=== PATIENT | female | born 1950 | race Caucasian/White ===

== ENCOUNTER 2017-06-04 19:47 | Outpatient (CLI) | payer SELFPAY | END 2017-06-04 19:48 | disposition EMS.NT | LOC: EMS 19:47 | PROVIDERS: ATTEND Surgery | DX: R52 Pain, unspecified (principal); V49.40XA Driver injured in collision with unspecified motor vehicles in traffic accident, initial encounter; Y92.410 Unspecified street and highway as the place of occurrence of the external cause ==

== ENCOUNTER 2017-07-24 10:19 | Outpatient (CLI) | payer BC ==
--- NOTE | 2017-07-24 12:09 | XRAY Report ---
TWO-VIEW CHEST: 07/24/2017 CLINICAL INDICATION: Pleuritic chest pain. FINDINGS: Frontal and lateral views of the chest demonstrate a normal cardiac silhouette. There are patchy parenchymal opacities in the right lung, with mild prominence of the right hilum. This may r epresent pneumonia with associated hilar adenopathy in the appropriate clinical scenario. If the pat ient's presentation is not compatible with infection, then chest CT would be recommended to exclude a n underlying pulmonary malignancy. If the patient's presentation is compatible with infection, follo wup chest x-ray following appropriate antibiotic therapy would be recommended. IMPRESSION: PATCHY RIGHT PULMONARY OPACITIES, WITH POSSIBLE RIGHT HILAR ADENOPATHY. PLEASE SEE AYANA E DISCUSSION. JOB #: [id number] EXT JOB #:[id number]
== END 2017-07-24 10:20 | disposition home or self-care (01) ==
LOC: DI 10:19
PROVIDERS: ATTEND Family Medicine
DX: R91.8 Other nonspecific abnormal finding of lung field (principal)
CPT/HCPCS: 71020

== ENCOUNTER 2017-08-08 11:32 | Outpatient (CLI) | payer BC ==
--- NOTE | 2017-08-08 15:08 | XRAY Report ---
EXAM: CHEST RADIOGRAPHY EXAM DATE: 08/08/2017 11:45 AM. CLINICAL HISTORY: PLEURITIC CHEST PAIN. COMPARISON: 07/24/2017. TECHNIQUE: 2 views. FINDINGS: Lungs/Pleura: Interval decrease in patchy opacity within the right midlung. Opacity projecting over t he right base probably represents nipple shadow. No evidence of acute consolidation. No effusion. No pneumothorax. Mediastinum: Heart and mediastinal contours are unremarkable. Other: 1. Interval IMPRESSION: 1. Interval decrease in patchy opacity within the right midlung. 2. No new areas of airspace disease are seen. [facility] Referring Provider Line: [phone] SITE ID: [id number]
== END 2017-08-08 11:33 | disposition home or self-care (01) ==
LOC: DI.S 11:32
PROVIDERS: ATTEND Family Medicine
DX: R07.81 Pleurodynia (principal)
CPT/HCPCS: 71020

== ENCOUNTER 2017-08-30 10:39 | Outpatient (CLI) | payer MEDICARE, OTHER ==
--- NOTE | 2017-08-30 13:19 | XRAY Report ---
DATE OF SERVICE: 08/30/2017 TWO VIEW CHEST: 08/30/2017 COMPARISON: Two view chest of 08/08/2017. INDICATION: Pleuritic chest pain. TECHNIQUE: Two views of the chest. FINDINGS: Again seen is right pulmonary basal opacity. This is unchanged and of uncertain etiology. It is not well seen on the lateral view. No pneumothorax or pleural effusion. Mediastinum otherwise unremarkable. IMPRESSION: RIGHT PULMONARY BASAL OPACITY IS OF UNCERTAIN ETIOLOGY AND SIGNIFICANCE. OTHER IMAGING SUCH CT IS AVAILABLE INDICATED. TD: 08/30/2017 14:17 DAVIN
== END 2017-08-30 10:40 | disposition home or self-care (01) ==
LOC: DI.S 10:39
PROVIDERS: ATTEND Family Medicine
DX: R07.81 Pleurodynia (principal)
CPT/HCPCS: 71046

== ENCOUNTER 2017-09-11 16:48 | Outpatient (CLI) | payer MEDICARE, OTHER, BC ==
--- NOTE | 2017-09-12 09:34 | CT Report ---
DATE OF SERVICE: 09/11/2017 CT CHEST WITHOUT CONTRAST: 09/11/2017 CLINICAL INDICATION: Pleuritic chest pain, cough TECHNIQUE: Axial CT images of the chest were obtained without intravenous contrast. No previous CT is available for comparison. Comparison is made to chest x-ray of 08/30/2017, 08/08/2017, 07/24/2017. In accordance with CT protocol optimization, one or more of the following dose reduction techniques were utilized for this exam: Automated exposure control, adjustment of mA and/or KV based on patient size, or use of iterative reconstructive technique. Allowing for the lack intravenous contrast, the heart and great vessels appear unremarkable. No hilar or mediastinal lymphadenopathy is appreciated. There are patchy infiltrates in the right upper lobe, right middle lobe, and lingula. No effusion or pneumothorax is present. Osseous structures demonstrate degenerative changes. Limited evaluation of upper abdominal structures demonstrates normal adrenal glands. IMPRESSION: Patchy bilateral infiltrates. TD: 09/12/2017 10:33
== END 2017-09-11 16:49 | disposition home or self-care (01) ==
LOC: DI 16:48
PROVIDERS: ATTEND Family Medicine
DX: R91.8 Other nonspecific abnormal finding of lung field (principal)
CPT/HCPCS: 71250

== ENCOUNTER 2017-10-10 13:20 | Outpatient (CLI) | payer MEDICARE, OTHER, BC ==
--- NOTE | 2017-10-10 17:13 | CT Report ---
CT CHEST WITHOUT CONTRAST: 10/10/2017 CLINICAL INDICATION: Pleuritic chest pain, followup infiltrates. COMPARISON: 09/11/2017 TECHNIQUE: Axial CT images of the chest were obtained without intravenous contrast. In accordance with CT protocol optimization, one or more of the following dose reduction techniques were utilized for this exam: Automated exposure control, adjustment of mA and/or KV based on patient size, or use of iterative reconstructive technique. FINDINGS: The heart and great vessels demonstrate mild atherosclerotic calcification. No hilar or mediastinal lymphadenopathy is present. Patchy infiltrates in the lateral right upper lobe have increased. No effusion or pneumothorax is present. Osseous structures demonstrate degenerative changes. Limited evaluation of upper abdominal structures demonstrates normal adrenal glands. IMPRESSION: INCREASING PATCHY INFILTRATES IN THE LATERAL RIGHT UPPER LOBE. TD: 10/10/2017 17:12
== END 2017-10-10 13:21 | disposition home or self-care (01) ==
LOC: DI 13:20
PROVIDERS: ATTEND Family Medicine
DX: R91.8 Other nonspecific abnormal finding of lung field (principal)
CPT/HCPCS: 71250

== ENCOUNTER 2018-02-21 12:34 | Outpatient (CLI) | payer MEDICARE, OTHER, BC ==
--- NOTE | 2018-02-21 13:07 | XRAY Report ---
Procedure Date: 02/21/2018 Accession Number: [id number] / [id number] Procedure: XR - Chest 2 View X-Ray CPT Code: 74761 FULL RESULT: EXAM: Chest 2 View X-Ray DATE: 02/21/2018 12:54 PM CLINICAL HISTORY: PNEUMONIA COMPARISON: CT 10/10/2017 TECHNIQUE: 2 views. FINDINGS: Lungs/Pleura: Right basilar infiltrate, more prominent than previous. No effusion or pneumothorax. Mediastinum: Heart and mediastinal contours are unremarkable. Other: None. IMPRESSION: Right basilar infiltrate, more prominent than previous. [facility]
== END 2018-02-21 12:35 | disposition home or self-care (01) ==
LOC: DI 12:34
PROVIDERS: ATTEND Internal Medicine
DX: J18.9 Pneumonia, unspecified organism (principal)
CPT/HCPCS: 71046

== ENCOUNTER 2018-03-11 13:56 | Emergency (ER) | payer MEDICARE, OTHER ==
[2018-03-11 14:06] VITALS: BP 110/68
--- NOTE | 2018-03-11 14:32 | XRAY Report ---
Procedure Date: 03/11/2018 Accession Number: [id number] / [id number] Procedure: XR - Shoulder 3 View RT CPT Code: FULL RESULT: EXAM: RIGHT SHOULDER RADIOGRAPHY EXAM DATE: 03/11/2018 02:17 PM. CLINICAL HISTORY: Shoulder pain after falling off horse. COMPARISON: None. TECHNIQUE: 3 views. FINDINGS: Bones: Acute comminuted minimally impacted fracture involving the right humeral head and neck, without angulation. Joints: The glenohumeral and acromioclavicular joints are normal. Soft tissues: The visualized hemithorax is unremarkable. Edema at the fracture site. IMPRESSION: Right humeral head and neck fracture. [facility]
--- NOTE | 2018-03-11 15:21 | ED Physician Documentation ---
PD HPI UPPER EXT INJURY - Stated complaint Stated Complaint: RT SHOULDER/ARM INJURY - Chief complaint Chief Complaint: Ext Problem - History obtained from History obtained from: Patient - History of Present Illness Location: Right, Shoulder Type of injury: Fall (she says was riding horse and the saddle was not cinched well, so it slid to the side, causing her to fall off, landing onto right shoulder.) Where injury occurred: [place] [facility] Timing - onset: Today Timing - details: Abrupt onset, Still present Worsened by: Moving, Palpating Associated symptoms: Swelling (shoulder). No: Weakness, Numbness Similar symptoms before: Has not had sx before Recently seen: Not recently seen Review of Systems Constitutional: denies: Fever, Chills Nose: denies: Rhinorrhea / runny nose, Congestion Throat: denies: Sore throat Respiratory: denies: Cough GI: denies: Vomiting, Diarrhea Skin: denies: Abrasion (s), Laceration (s) Musculoskeletal: reports: Joint pain (right shoulder only). denies: Neck pain, Back pain Neurologic: denies: Focal weakness, Numbness PD PAST MEDICAL HISTORY - Past Medical History Cardiovascular: None Respiratory: None Neuro: None - Present Medications Home Medications: Ambulatory Orders Medication Instructions Recorded Confirmed HYDROcod/ACETAM 5/325 [Foster 5/325] 1 tab PO Q6H PRN #25 tablet 03/11/18 Methocarbamol [Robaxin] 500 mg PO Q6H PRN #25 tablet 03/11/18 Naproxen 375 mg PO BID #20 tablet 03/11/18 PD ED PE NORMAL - Vitals Vital signs reviewed: Yes - General General: Alert and oriented X 3, Well developed/nourished, Other (appears in pain with any ROM of the shoulder. holding right arm guardedly to side. ) - HEENT HEENT: Atraumatic, Dentition benign - Neck Neck: Supple, no meningeal sign, No adenopathy - Cardiac Cardiac: RRR, No murmur - Respiratory Respiratory: Clear bilaterally - Abdomen Abdomen: Soft, Non tender - Back Back: No CVA TTP, No spinal TTP - Derm Derm: Normal color, Warm and dry - Extremities Extremities: Other (wrist and elbow not tender. Right shoulder tender at humeral neck area with some swelling. No gross deformity. Pain with any slight ROM. ) - Neuro Neuro: No motor deficit, No sensory deficit Results - Vitals Vitals: Oxygen O2 Source Room air PD MEDICAL DECISION MAKING - ED course Complexity details: reviewed results, considered differential, d/w patient - Sepsis Event Vital Signs: Oxygen O2 Source Room air Departure - Departure Disposition: 01 Home, Self Care Clinical Impression: Fall from horse Qualifiers: Encounter type: initial encounter Qualified Code(s): V80.010A - Animal-rider injured by fall from or being thrown from horse in noncollision accident, initial encounter Fx humeral neck Qualifiers: Encounter type: initial encounter Fracture type: closed Laterality: right Qualified Code(s): S42.211A - Unspecified displaced fracture of surgical neck of right humerus, initial encounter for closed fracture Condition: Stable Record reviewed to determine appropriate education?: Yes Instructions: ED Fx Shoulder Follow-Up: Markie Mistry MD [Provider Admit Priv/Credential] - Prescriptions: HYDROcod/ACETAM 5/325 [Foster 5/325] 1 tab PO Q6H PRN #25 tablet PRN Reason: Pain Methocarbamol [Robaxin] 500 mg PO Q6H PRN #25 tablet PRN Reason: Spasms Naproxen 375 mg PO BID #20 tablet Comments: Sling for the arm for likely 4 weeks. Follow-up with orthopedics in about a week, call today or tomorrow for an appointment. Ice or cool towels to the area periodically today for swelling. Naproxen twice daily for the next 7-10 days for pain and inflammation. Robaxin if needed for muscle spasms around the shoulder. Add Tylenol or hydrocodone if needed for pain. Discharge Date/Time: 03/11/18 17:21
[2018-03-11] MEDS ORDERED: METHOCARBAMOL 500 MG TABLET PO STA (15:30)
[2018-03-11] MEDS ORDERED: KETOROLAC 30 MG/ML VIAL IM STA (15:30)
[2018-03-11] MEDS ORDERED: oxyCOD/ACETAMIN 5 MG/325 MG TABLET PO STA (15:30)
== END 2018-03-11 17:21 | disposition home or self-care (01) ==
LOC: ED 13:56
DX: S42.211A Unspecified displaced fracture of surgical neck of right humerus, initial encounter for closed fracture (principal); V80.010A Animal-rider injured by fall from or being thrown from horse in noncollision accident, initial encounter; Y93.52 Activity, horseback riding
CPT/HCPCS: 73030; 96372; 99283; A9270

== ENCOUNTER 2018-03-31 09:09 | Outpatient (CLI) | payer MEDICARE, OTHER ==
--- NOTE | 2018-03-31 14:40 | XRAY Report ---
Procedure Date: 03/31/2018 Accession Number: [id number] / [id number] Procedure: XRS - Chest 2 View X-Ray CPT Code: 71153 FULL RESULT: EXAM: Chest 2 View X-Ray DATE: 03/31/2018 9:19 AM CLINICAL HISTORY: PNEUMONIA COMPARISON: 02/21/2018. TECHNIQUE: 2 views. FINDINGS: Previously seen predominant right basilar infiltrates have decreased in conspicuity. No new opacities are identified. There is no pleural effusion or pneumothorax. A normal sized cardiomediastinal silhouette is stable. IMPRESSION: Interval decrease in previously seen pulmonary infiltrates. Pulmonary infiltrates often remain radiographically evident after clinical symptoms have resolved. [place] typical radiographic follow-up is 4 weeks following resolution of clinical symptoms. [facility]
== END 2018-03-31 09:10 | disposition home or self-care (01) ==
LOC: DI.S 09:09
PROVIDERS: ATTEND Internal Medicine
DX: J18.9 Pneumonia, unspecified organism (principal)
CPT/HCPCS: 71046

== ENCOUNTER 2018-04-26 15:36 | Outpatient (CLI) | payer MEDICARE, OTHER ==
--- NOTE | 2018-04-26 16:17 | XRAY Report ---
Reason: PNEUMONIA FOLLOW UP Procedure Date: 04/26/2018 Accession Number: [id number] / [id number] Procedure: XR - Chest 2 View X-Ray CPT Code: 46364 FULL RESULT: EXAM: CHEST RADIOGRAPHY EXAM DATE: 04/26/2018 03:50 PM. CLINICAL HISTORY: PNEUMONIA FOLLOW UP. Chronic cough. COMPARISON: Chest 02/21/2018. TECHNIQUE: 2 views. FINDINGS: Lungs/Pleura: A focal group of small nodular opacities in the right upper lobe have increased compared to prior exam. The right anterior base consolidative opacification has decreased to a small amount. New left midlung pulmonary nodule measuring 1.2 cm. No pleural effusion or pneumothorax. Mediastinum: Heart and mediastinal contours are unremarkable. IMPRESSION: A focal group of small nodular opacities in the right upper lobe have increased compared to prior exam. The right anterior base consolidative opacification has decreased to a small amount. New left midlung pulmonary nodule measuring 1.2 cm. [facility]
== END 2018-04-26 15:37 | disposition home or self-care (01) ==
LOC: DI 15:36
PROVIDERS: ATTEND Internal Medicine
DX: R91.8 Other nonspecific abnormal finding of lung field (principal); Z87.891 Personal history of nicotine dependence
CPT/HCPCS: 71046

== ENCOUNTER 2018-06-16 09:22 | Outpatient (CLI) | payer MEDICARE, OTHER ==
--- NOTE | 2018-06-16 12:57 | DEXA Report ---
Reason: ASYMPTOMATIC MENOPAUSAL Procedure Date: 06/16/2018 Accession Number: [id number] / [id number] Procedure: DEX - Dexa Spine and/or Hip CPT Code: FULL RESULT: EXAM: Dexa Spine and/or Hip DATE: 06/16/2018 9:55 AM CLINICAL HISTORY: ASYMPTOMATIC POST MENOPAUSAL TECHNIQUE: Dual energy x-ray absorptiometry (DXA) was performed on a Sympler System. Regions measured are the AP Spine, femoral neck, and if needed forearm. COMPARISON: None. In accordance with the International Society for Clinical Densitometry (ISCD) guidelines, data from previous exams may be reanalyzed using current recommendations and techniques. This is done to allow a more accurate basis for comparison with the current study. FINDINGS: The data for the lumbar spine is as follows: BMD (g/cm/cm) T-SCORE Z-SCORE REGION L1 0.955 -1.5 -0.3 L2 0.963 -2.0 -0.8 L3 1.122 -0.7 0.5 L4 1.280 0.7 1.9 TOTAL 1.100 -0.7 0.5 NOTE: All evaluable vertebrae are used for classification The data for the hip is as follows: BMD (g/cm/cm) T-SCORE Z-SCORE REGION Neck 0.846 -1.4 -0.1 TOTAL 0.867 -1.1 -0.2 NOTE: The femoral neck or total proximal femur, whichever is lowest, is used for classification. IMPRESSION: THE WHO CLASSIFICATION BASED ON THE INTERNATIONAL REFERENCE STANDARD IS OSTEOPENIA. THE FRACTURE RISK IS INCREASED. RECOMMENDATION: Patients with diagnosis of osteoporosis or osteopenia should have regular bone mineral density assessment. For those eligible for Medicare, routine testing is allowed once every 2 years. Testing frequency can be increased for patients who have rapidly progressing disease or for those who are receiving medical therapy to restore bone mass. COMMENT: World Health Organization (WHO) definitions for osteoporosis and osteopenia: NORMAL BMD: T-score at -1.0 or higher, fracture risk is low OSTEOPENIA BMD: T-score between -1.0 and -2.5, fracture risk is increased. OSTEOPOROSIS BMD: T-score at -2.5 or lower, fracture risk is high. National Osteoporosis Foundation recommends: 1. Obtain adequate dietary calcium (at least 1200 mg per day) and vitamin D (400-800 international units per day). 2. Participate, as appropriate, in regular weightbearing and muscle-strengthening exercise. 3. Avoid tobacco use and reduce alcohol and caffeine intake. 4. For more detailed information see the website at www.NOF.org.
== END 2018-06-16 09:23 | disposition home or self-care (01) ==
LOC: DI 09:22
PROVIDERS: ATTEND Internal Medicine
DX: M85.88 Other specified disorders of bone density and structure, other site (principal)
CPT/HCPCS: 77080

== ENCOUNTER 2018-06-16 09:24 | Outpatient (CLI) | payer MEDICARE, OTHER ==
--- NOTE | 2018-06-27 09:48 | Mammography Report ---
Reason: SCREENING Procedure Date: 06/16/2018 Accession Number: [id number] / [id number] Procedure: ALLEY - Screening Mammo Dig Bilat CPT Code: FULL RESULT: EXAM: Screening Mammo Dig Bilat DATE: 06/16/2018 10:05 AM CLINICAL HISTORY: 68-year-old female with history of late childbearing. Family history of breast cancer in the mother around the age of 70. TECHNIQUE: Bilateral CC and MLO views were obtained. COMPARISON: None FINDINGS: The breasts demonstrate heterogeneously dense fibroglandular parenchyma bilaterally. Typically benign coarse calcifications are again seen. No suspicious masses, clustered microcalcifications, or regions of architectural distortion are identified. IMPRESSION: Benign findings RECOMMENDATION: Routine annual screening unless otherwise clinically indicated. BIRADS CATEGORY 2: Benign findings STANDARD QUALIFYING STATEMENTS: 1. This examination was not reviewed with the aid of Computer-Aided Detection (CAD). 2. A negative or benign imaging report should not delay biopsy if clinically suspicious findings are present. Consider surgical consultation if warrented. More than 5% of cancers are not identified by imaging. 3. Dense breasts may obscure an underlying neoplasm. 4. This examination was reviewed without the aid of 3D breast imaging (tomosynthesis).
== END 2018-06-16 09:25 | disposition home or self-care (01) ==
LOC: DI 09:24
DX: Z12.31 Encounter for screening mammogram for malignant neoplasm of breast (principal); Z80.3 Family history of malignant neoplasm of breast
CPT/HCPCS: 77067

== ENCOUNTER 2018-09-02 11:07 | Outpatient (CLI) | payer MEDICARE, OTHER ==
--- NOTE | 2018-09-02 14:40 | CT Report ---
Reason: THUMB PAIN, RIGHT Procedure Date: 09/02/2018 Accession Number: [id number] / [id number] Procedure: CT - Upper Extremity Right W/O CPT Code: FULL RESULT: EXAM: RIGHT HAND CT WITHOUT CONTRAST EXAM DATE: 09/02/2018 11:27 AM. CLINICAL HISTORY: THUMB PAIN, RIGHT. COMPARISON: None. TECHNIQUE: Thin section axial images were acquired of the hand without contrast. Post-processing: Coronal and sagittal reformats. Other: None. In accordance with CT protocol optimization, one or more of the following dose reduction techniques were utilized for this exam: automated exposure control, adjustment of mA and/or KV based on patient size, or use of iterative reconstructive technique. FINDINGS: Bones: Postsurgical changes of trapezium resection. No acute fracture. Joints: Postsurgical changes of resection of the trapezium, with residual subchondral sclerosis and cystic change with marginal osteophyte formation and irregularity of the subchondral bone plates at the distal pole of the scaphoid and base of the thumb metacarpal. Subtle subchondral cystic change at the articulation of the scaphoid with the trapezoid. The thumb metacarpal has migrated proximally to fill the resection cavity the site of the trapezium. Small subchondral cysts with a rounded ossicle at the volar margin of the second carpometacarpal joint. The joint spaces are otherwise normal. Musculature: Normal. No fatty atrophy. Other: None. IMPRESSION: Postsurgical changes of trapezium excision, with proximal migration of the thumb metacarpal and residual subchondral cystic change, sclerosis, and marginal osteophyte formation at the distal pole of the scaphoid and base of the thumb metacarpal. Minimal degenerative changes of the articulation of the scaphoid with the trapezoid. Mild degenerative changes of the second carpometacarpal joint. [facility]
== END 2018-09-02 11:08 | disposition home or self-care (01) ==
LOC: DI 11:07
PROVIDERS: ATTEND Orthopaedic Surgery
DX: M19.041 Primary osteoarthritis, right hand (principal); M19.031 Primary osteoarthritis, right wrist

== ENCOUNTER 2021-03-25 21:45 | Emergency (ER) | payer MEDICARE, OTHER ==
[2021-03-25 22:08] LABS: BASOPHILS % (AUTO) 0.3 %; EOSINOPHILS # (AUTO) 0.1 10^3/uL (0.0-0.7); EOSINOPHILS % (AUTO) 1.4 %; HCT - HEMATOCRIT 38.3 % (37.0-47.0); HGB - HEMOGLOBIN 12.8 g/dL (12.0-16.0); LYMPHOCYTES # (AUTO) 0.3 10^3/uL (1.5-3.5); LYMPHOCYTES % (AUTO) 5.8 %; MEAN CORPUSCULAR HEMOGLOBIN 31.8 pg (27.0-31.0); MEAN CORPUSCULAR HGB CONC 33.4 g/dL (32.0-36.0); MEAN CORPUSCULAR VOLUME 95.3 fL (81.0-99.0); MEAN PLATELET VOLUME 8.8 fL (7.9-10.8); MONOCYTES # (AUTO) 0.2 10^3/uL (0.0-1.0); MONOCYTES % (AUTO) 3.8 %; NEUTROPHILS # (AUTO) 5.2 10^3/uL (1.5-6.6); NEUTROPHILS % (AUTO) 88.4 %; PLT - PLATELET COUNT 197 10^3/uL (130-450); RED BLOOD COUNT 4.02 10^6/uL (4.20-5.40); RED CELL DISTRIBUTION WIDTH 13.2 % (12.0-15.0); WHITE BLOOD COUNT 5.9 x10^3/uL (4.8-10.8)
[2021-03-25 22:14] LABS: BILIRUBIN,URINE NEGATIVE (NEGATIVE); GLUCOSE, URINE (UA) NEGATIVE (NEGATIVE); KETONES,URINE (UA) NEGATIVE (NEGATIVE); LEUKOCYTE ESTERASE, URINE NEGATIVE (NEGATIVE); NITRITE,URINE NEGATIVE (NEGATIVE); OCCULT BLOOD,URINE TRACE-INTA (NEGATIVE); PROTEIN,URINE NEGATIVE (NEGATIVE); UROBILINOGEN,URINE 0.2 (NORMAL) E.U./dL (NORMAL)
--- NOTE | 2021-03-25 22:14 | ED Physician Documentation ---
PD HPI ABD PAIN - Stated complaint Stated Complaint: ABD PX/VOMITING - Chief complaint Chief Complaint: Abd Pain - History obtained from History obtained from: Patient - History of Present Illness Timing - onset: Enter time (08:00), Today Timing - details: Gradual onset Pain level now: 5 Quality: Cramping, Pain Location: All over / everywhere Improved by: Other (no ameliorating factors) Worsened by: Eating Associated symptoms: Nausea, Vomiting, Constipation. No: Fever Similar symptoms before: Diagnosis (similar to previous SBO) Review of Systems Constitutional: reports: Reviewed and negative Cardiac: reports: Reviewed and negative Respiratory: reports: Reviewed and negative GI: reports: Abdominal Pain, Nausea, Vomiting, Constipation. denies: Abdominal Swelling : denies: Dysuria, Frequency PD PAST MEDICAL HISTORY - Past Medical History Cardiovascular: None Respiratory: None Neuro: None - Past Surgical History Past Surgical History: No - Present Medications Home Medications: Ambulatory Orders Medication Instructions Recorded Confirmed Meloxicam, Submicronized 10 mg PO PRN PRN 03/25/21 03/25/21 [Meloxicam] Sertraline [Zoloft] 50 mg PO DAILY 03/25/21 03/25/21 traZODone [Desyrel] 50 mg PO PRN PRN 03/25/21 03/25/21 Ondansetron Odt [Zofran] 4 mg TL Q6H PRN #10 tablet 03/26/21 - Allergies Allergies/Adverse Reactions: Allergies Allergy/AdvReac Type Severity Reaction Status Date / Time morphine AdvReac Unknown Verified 03/25/21 21:50 promethazine [From Phenergan] AdvReac Unknown Verified 03/25/21 21:50 - Social History Does the pt smoke?: No Smoking Status: Never smoker Does the pt drink ETOH?: No Does the pt have substance abuse?: No - Immunizations Immunizations are current?: Yes - POLST Patient has POLST: No PD ED PE NORMAL - Vitals Vital signs reviewed: Yes - General General: Alert and oriented X 3, No acute distress, Well developed/nourished - Cardiac Cardiac: RRR, No murmur - Respiratory Respiratory: No respiratory distress, Clear bilaterally - Abdomen Abdomen: Normal bowel sounds, Soft, Non distended, Other (mild TTP across lower abdomen and periumbilcus without rebound or guarding) - Back Back: No CVA TTP Results - Vitals Vitals: Oxygen O2 Source Room air - Labs Labs: Laboratory Tests 03/25/21 03/25/21 03/25/21 22:04 22:04 22:04 WBC 5.9 RBC 4.02 L Hgb 12.8 Hct 38.3 MCV 95.3 MCH 31.8 H MCHC 33.4 RDW 13.2 Plt Count 197 MPV 8.8 Neut # (Auto) 5.2 Lymph # (Auto) 0.3 L [place] # (Auto) 0.2 Eos # (Auto) 0.1 Baso # (Auto) 0.0 Absolute Nucleated RBC 0.00 Nucleated RBC % 0.0 Sodium 137 Potassium 4.0 Chloride 97 L Carbon Dioxide 29 Anion Gap 11.0 BUN 22 H Creatinine 0.9 Estimated GFR (MDRD) 62 L Glucose 108 H Calcium 8.7 Total Bilirubin 0.7 AST 29 ALT 22 Alkaline Phosphatase 50 Total Protein 7.0 Albumin 4.2 Globulin 2.8 Albumin/Globulin Ratio 1.5 Lipase 36 Urine Color YELLOW Urine Clarity CLEAR Urine pH 6.0 Ur Specific [place] 1.010 Urine Protein NEGATIVE Urine Glucose (UA) NEGATIVE Urine Ketones NEGATIVE Urine Occult Blood TRACE-INTA Urine Nitrite NEGATIVE Urine Bilirubin NEGATIVE Urine Urobilinogen 0.2 (NORMAL) Ur Leukocyte Esterase NEGATIVE Ur Microscopic Review NOT INDICATED Urine Culture Comments NOT INDICATED - Rads (name of study) CT A/P Radiology: Prelim report reviewed, See rad report PD MEDICAL DECISION MAKING - ED course Complexity details: reviewed results, re-evaluated patient, considered differential, d/w patient Departure - Departure Disposition: 01 Home, Self Care Clinical Impression: Constipation Condition: Good Instructions: ED Abdominal Pain Unkn Cause, ED Constipation Prescriptions: Ondansetron Odt [Zofran] 4 mg TL Q6H PRN #10 tablet PRN Reason: Nausea / Vomiting Discharge Date/Time: 03/26/21 03:50
[2021-03-25 22:15] LABS: CLARITY,URINE CLEAR (CLEAR)
[2021-03-25 22:21] LABS: ALBUMIN 4.2 g/dL (3.2-5.5); ALBUMIN/GLOBULIN RATIO 1.5 (1.0-2.2); BILIRUBIN,TOTAL 0.7 mg/dL (0.2-1.0); CALCIUM 8.7 mg/dL (8.5-10.3); CREATININE 0.9 mg/dL (0.4-1.0)
[2021-03-25] MEDS ORDERED: SODIUM CHLORIDE 0.9% 1,000 ML IV STA (22:31)
[2021-03-25] MEDS ORDERED: ONDANSETRON 4 MG/2 ML VIAL IVP STA (22:31)
[2021-03-25] MEDS ORDERED: IOPAMIDOL-300 100 ML VIAL ONE (22:43)
[2021-03-25] MEDS ORDERED: IOVERSOL 320 50 ML VIAL ONE (22:43)
[2021-03-25] MEDS ORDERED: IOVERSOL 320 50 ML VIAL PO ONE (23:01)
[2021-03-26] MEDS ORDERED: IOPAMIDOL-300 100 ML VIAL IVP ONE (00:57)
[2021-03-26] MEDS ORDERED: KETOROLAC 30 MG/ML VIAL IVP STA (02:29)
[2021-03-26] MEDS ORDERED: ONDANSETRON ODT 4 MG Prepack 2 TL STA (03:21)
[2021-03-26] MEDS ORDERED: MAGNESIUM CITRATE 296 ML BOTTLE PO STA (03:22)
[2021-03-26] MEDS ORDERED: ONDANSETRON ODT 4 MG Prepack 2 TL PRN (03:32)
[2021-03-26] MEDS ORDERED: MAGNESIUM CITRATE 296 ML BOTTLE ONE (03:40)
[2021-03-26] MEDS ORDERED: ONDANSETRON ODT 4 MG Prepack 2 TL ONE (03:40)
[2021-03-26 03:49] VITALS: BP 102/57
--- NOTE | 2021-03-26 10:56 | CT Report ---
PROCEDURE: Abdomen/Pelvis W INDICATIONS: abd. pain CONTRAST: IV CONTRAST: Isovue 300 ml: 100 PO CONTRAST: Optiray 320 ml50 TECHNIQUE: After the administration of IV and oral contrast, 5 mm thick sections acquired from the diaphragms to the symphysis. 5 mm thick coronal and sagittal reformats were acquired. For radiation dose reducti on, the following was used: automated exposure control, adjustment of mA and/or kV according to guillermo ent size. COMPARISON: None. FINDINGS: Image quality: Excellent. ABDOMEN: Lung bases: Mild scarring within the bilateral anterior lung bases. Lung bases are otherwise clear. Heart size is normal. Solid organs: Liver and spleen are normal in size and enhancement. Gallbladder is mildly distended without fat stranding or wall thickening. Biliary system is non dilated. Pancreas enhances normally . No adrenal nodules. Kidneys demonstrate normal size and enhancement, without hydronephrosis. Peritoneum and bowel: Bowel loops demonstrate normal wall thickness and caliber. Moderate diffuse co lonic stool. Appendix not seen. No evidence of appendicitis. No free fluid or air. Nodes and vessels: No retroperitoneal or mesenteric adenopathy by size criteria. Aorta and inferior vena cava are normal in size. Miscellaneous: No ventral hernias. PELVIS: Genitourinary: Bladder wall thickness is normal. Miscellaneous: No inguinal hernias or adenopathy. Bones: No suspicious bony lesions. No vertebral body compression fractures. IMPRESSION: Moderate colonic stool. No acute process. Concordant with preliminary interpretation. Reviewed by: Yumi Parson MD on 03/26/2021 9:55 AM NANI Approved by: Yumi Parson MD on 03/26/2021 9:55 AM NANI Station ID: [id number]
== END 2021-03-26 03:50 | disposition home or self-care (01) ==
LOC: ED 21:45
DX: K59.00 Constipation, unspecified (principal)
CPT/HCPCS: 36415; 74177; 80053; 81003; 83690; 85025; 96361; 96374; 96375; 99284; A9270; Q9967; 81001; 87086